=== PATIENT | female | born 1970 | race Caucasian/White ===

== ENCOUNTER 2017-08-05 14:34 | Emergency (ER) | payer MEDICAID ==
[~2017-08-05] VITALS: Ht 170.2 cm; Wt 59.0 kg
[2017-08-05 17:00] LABS: APPEARANCE,URINE CLEAR; KETONES,URINE 1+ (NEGATIVE); LEUKOCYTE ESTERASE ,URINE 1+ (NEGATIVE); NITRITE,URINE NEGATIVE (NEGATIVE); PH,URINE 5 (4.5-8.0); PROTEIN,URINE NEGATIVE (NEGATIVE); UROBILINOGEN,URINE 1 MG/DL (0.0-1.0)
[2017-08-05 17:09] LABS: BACTERIA,URINE FEW /HPF; SQUAMOUS EPITHELIAL CELL,UR FEW /LPF (NONE/OCC)
[2017-08-05] MEDS ORDERED: CLINDAMYCIN HC300 MG ORAL (17:15)
[2017-08-05 17:20] VITALS: BP 115/66
--- NOTE | 2017-08-05 23:19 | Emergency Room Report ---
History of Present Illness General Chief Complaint: Vaginal Source: Patient Present Illness [facility] The patient is a 46 old female presenting for possible vaginal foreign body. She states that she inserted a small tampon 2 days prior and has not been able to find it. She is unsure if it fell out. She denies any pain. She denies any other symptoms including nausea, vomiting, fever, chills, abdominal pain, back pain, vaginal discharge, dysuria Allergies: Coded Allergies: PENICILLINS (Verified Allergy, Unknown, 08/05/17) Patient History Past Medical History: see triage record Pertinent Family History: none Last Menstrual Period: 08/02/17 Now: No Reviewed Nursing Documentation: PMH: Agreed, PSxH: Agreed Nursing Documentation-PMH Past Medical History: No Stated History Review of Systems All Other Systems: negative except mentioned in HPI Physical Exam Vital Signs Date Time Temp Pulse Resp B/P (MAP) Pulse Ox O2 Delivery O2 Flow Rate FiO2 08/05/17 15:01 98.1 87 16 115/66 100 Room Air Sp02 EP Interpretation: reviewed, normal General Appearance: no apparent distress, alert, GCS 15, non-toxic Head: normocephalic, atraumatic Eyes: bilateral eye normal inspection, bilateral eye PERRL ENT: hearing grossly normal, normal pharynx, no angioedema, normal voice Gastrointestinal: normal bowel sounds, non tender, soft, non-distended, no guarding, no rebound Genitourinary: normal inspection, no CVA tenderness, ext genitalia/vag normal, os closed, other - Pelvic exam reveals no foreign body Musculoskeletal: back normal, gait/station normal, normal range of motion, non- tender Neurologic: alert, oriented x3, responsive, motor strength/tone normal, sensory intact, speech normal Psychiatric: judgement/insight normal, memory normal, mood/affect normal, no suicidal/homicidal ideation Skin: normal color, no rash, warm/dry, well hydrated Medical Decision Making PA Attestation Dr. Mejia is my supervising physician. Patient management was discussed with my supervising physician Diagnostic Impression: Primary Impression: Vaginal foreign body Qualified Codes: T19.2XXA - Foreign body in vulva and vagina, initial encounter ER Course The patient is a 46 old female presenting for possible vaginal foreign body. Differential diagnosis considered but not limited to: Toxic shock syndrome, Foreign body, UTI, vaginitis, among others PE: afebrile. NAD Abd soft and non tender. Pelvic exam done with female nurse in room. No foreign bodies seen. There is some pooling of dark red blood. otherwise unremarkable The patient is OK'ed home with prescription for clindamycin as precaution and the patient will FU with PMD Laboratory Tests Test 08/05/17 16:23 Urine Color Yellow Urine Appearance Clear Urine pH 5 (4.5-8.0) Urine Specific [place] 1.025 (1.005-1.035) Urine Protein Negative (NEGATIVE) Urine Glucose (UA) Negative (NEGATIVE) Urine Ketones 1+ (NEGATIVE) H Urine Occult Blood 4+ (NEGATIVE) H Urine Nitrite Negative (NEGATIVE) Urine Bilirubin Negative (NEGATIVE) Urine Urobilinogen 1 MG/DL (0.0-1.0) H Urine Leukocyte Esterase 1+ (NEGATIVE) H Urine RBC 5-10 /HPF (0 - 2) H Urine WBC 2-4 /HPF (0 - 2) Urine Squamous Epithelial Cells Few /LPF (NONE/OCC) Urine Bacteria Few /HPF (NONE) Urine HCG, Qualitative Negative Lab Results Impression not consistent with UTI Last Vital Signs Date Time Temp Pulse Resp B/P (MAP) Pulse Ox O2 Delivery O2 Flow Rate FiO2 08/05/17 17:20 98.1 80 16 115/66 100 Room Air Status: improved Disposition: HOME, SELF-CARE Condition: Improved Scripts Clindamycin Hcl (CLINDAMYCIN HCL) 300 Mg Capsule 300 MG ORAL Q12HR, #14 CAP Prov: JAVIER QUINTERO 08/05/17 Referrals: NOT CHOSEN IPA/MD,REFERRING (PCP) Patient Instructions: Vaginal Foreign Body, Toxic Shock Syndrome Additional Instructions: I discussed my findings with the patient. All questions and concerns have been answered. Treatment and medication compliance have been addressed. Please return to emergency Department if you notice vaginal discharge, pain with urination, abdominal pain, fever, back pain, or for any other reason JAVIER QUINTERO Aug 05, 2017 23:19
== END 2017-08-05 17:30 | disposition home or self-care (01) ==
LOC: EMR 15:05
DX: T19.2XXA Foreign body in vulva and vagina, initial encounter (principal); X58.XXXA Exposure to other specified factors, initial encounter; Z88.0 Allergy status to penicillin
CPT/HCPCS: 81003; 81025; 99283

== ENCOUNTER 2017-08-27 02:25 | Emergency (ER) | payer MEDICAID ==
[~2017-08-27] VITALS: Ht 172.7 cm; Wt 59.0 kg
[~2017-08-27 02:25] MED LIST: CLINDAMYCIN HC300 MG ORAL
[2017-08-27 02:40] VITALS: BP 150/89
[2017-08-27] MEDS ORDERED: METROGEL-VAGINA70 G1 VAGIN (03:07)
[2017-08-27 03:10] VITALS: BP 138/79
--- NOTE | 2017-08-27 05:48 | Emergency Room Report ---
History of Present Illness General Chief Complaint: Foreign Body Source: Patient Present Illness [facility] This is a 46-year-old female presented after increased foreign body sensation. Patient states that she had recent intercourse and stated that she had possibly lost a tampon in her vagina. Patient denied any fever. She reported having some vaginal discomfort. She denied any fever or increased discharge. Allergies: Coded Allergies: MEPERIDINE (Verified Allergy, Unknown, 08/27/17) PENICILLINS (Verified Allergy, Unknown, 08/05/17) Patient History Past Medical History: see triage record Last Menstrual Period: 08/02/17 Now: No Reviewed Nursing Documentation: PMH: Agreed, PSxH: Agreed Nursing Documentation-PMH Past Medical History: No History, Except For Review of Systems All Other Systems: negative except mentioned in HPI Physical Exam Vital Signs Date Time Temp Pulse Resp B/P (MAP) Pulse Ox O2 Delivery O2 Flow Rate FiO2 08/27/17 02:33 98.1 89 16 155/93 98 Room Air General Appearance: well appearing, no apparent distress, alert, GCS 15 Head: normocephalic, atraumatic ENT: hearing grossly normal, normal voice Neck: full range of motion, supple Respiratory: no respiratory distress, speaking full sentences Genitourinary: normal inspection, other - no foreign body noted Musculoskeletal: normal range of motion, no calf tenderness Neurologic: normal inspection, alert, oriented x3, layout former III-XII nml as tested, normal gait Psychiatric: mood/affect normal Skin: no rash Medical Decision Making Diagnostic Impression: Primary Impression: No foreign body found on evaluation ER Course Patient presented for possible vaginal foreign body. Differential diagnosis included wasn't limited to foreign body, toxic shock syndrome, cervicitis, among others. Patient's benign exam and does not appear to require any further imaging or laboratory testing at this time. No foreign body was evident on vaginal exam. The bimanual exam is unremarkable. The patient is advised to follow up with primary care doctor in 1-2 days. Patient is advised to return if any worsening condition or if any changes in status that are concerning.The patient noted have some discharge was given prescription for MetroGel for possible bacterial vaginosis This report is dictated with [employer] wheelchair van operator first responder software which may occasionally lead to discrepancies related to use of this software. Last Vital Signs Date Time Temp Pulse Resp B/P (MAP) Pulse Ox O2 Delivery O2 Flow Rate FiO2 08/27/17 03:10 98.1 76 16 138/79 100 Room Air Status: improved Disposition: HOME, SELF-CARE Condition: Stable Scripts Metronidazole* (METROGEL-VAGINAL*) 70 Gm Gel.w.appl 1 APPL VAGIN EVERY 12 HOURS, #70 GM Prov: Gregor Wallace 08/27/17 Referrals: NON PHYSICIAN (PCP) Patient Instructions: Vaginitis Gregor Wallace Aug 27, 2017 05:48
== END 2017-08-27 03:20 | disposition home or self-care (01) ==
LOC: EMR 03:13
DX: Z04.8 Encounter for examination and observation for other specified reasons (principal); Z88.0 Allergy status to penicillin; Z88.8 Allergy status to other drugs, medicaments and biological substances
CPT/HCPCS: 99283